=== PATIENT | male | born 1945 | race Caucasian/White ===

== ENCOUNTER 2016-11-27 08:15 | Day surgery (SDC) | payer MEDICARE, OTHER ==
[~2016-11-27] VITALS: Ht 170.2 cm; Wt 67.4 kg
[~2016-11-27 08:15] MED LIST: ASPI-611 PO; CEPH500C2 PO; CLOP75TA33 PO; DILT120C3 PO; LIDOCAINE 1% (10mg/ml) 2ml SDV INJ ONE; LR 1,000 ML IV SCH; MULT1CAP47 PO; OMEG500C7 PO; ROSU40TA20 PO; UBID30CA11 PO; VIT-10 PO
--- OUTSIDE RECORDS SUMMARY | 2016-11-27 08:20 | XMS REPORT | Referral Summary ---
Author Author [facility], Family Medicine Organization [facility] Address Unknown Phone Unavailable Care Team Providers Care Sap Ppm Consultant Name Role Phone Emanuel Block Primary Care Physician [phone] Encounter VC Date(s): 05/11/15 - 05/11/15 [facility] Newton, [address] [place] [address]- Discharge Diagnosis: Visit for wound care Discharge Disposition: 01-Home or Self Care Attending Physician: Emanuel Block DO Admitting Physician: Emanuel Block DO Vital Signs Most recent to 1 oldest [Reference Range]: Temperature Tympanic 35.8 degC [36.6-38.1 degC] *LOW* (05/11/15 9:53 AM) Peripheral Pulse 70 bpm Rate [60-100 bpm] (05/11/15 9:53 AM) Blood Pressure 140/75 mmHg [90-140/60-90 mmHg] (05/11/15 9:53 AM) Problem List Condition Effective Dates Status Health Status Informant Abdominal aortic Active aneurysm(Confirmed) Hay Active fever(Confirmed)1 Peripheral Active neuropathy(Confirmed ) Dyslipidemia, goal Active LDL below 70(Confirmed) HTN Active (hypertension)(Confi rmed) Prostate 1999 Active cancer(Confirmed) Leg pain, 02/15/09 Active bilateral(Confirmed) PVD (peripheral Active vascular disease)(Confirmed) Chicken Active pox(Confirmed) 1Mainly childhood Allergies, Adverse Reactions, Alerts No Known Medication Allergies Medications Aspir 81 oral delayed release tablet 1 tabs, Oral, Daily Start Date: 03/20/14 Status: Ordered Cardizem CD 120 mg/24 hours oral capsule, extended release 1 caps, Oral, Daily, # 90 caps, 3 Refill(s), Pharmacy: [id number], 1 caps Oral Daily Start Date: 10/03/14 Status: Ordered Crestor 20 mg oral tablet 0.5 tabs, Oral, Daily Start Date: 03/20/14 Status: Ordered Fish Oil Oral, 0 Refill(s) Start Date: 06/29/14 Status: Ordered Multivitamins oral tablet 1 tabs, Oral, Daily Start Date: 03/20/14 Status: Ordered Plavix 75 mg oral tablet 1 tabs, Oral, Daily Start Date: 03/20/14 Status: Ordered Viagra 100 mg oral tablet 1 tabs, Oral, Daily, as needed for erectile dysfunction, 1 hour before sexual activity Start Date: 03/20/14 Status: Ordered Results No data available for this section Immunizations No data available for this section Procedures Procedure Date Related Diagnosis Body Site PFT 09/12/11 Colonoscopy 06/24/10 Open repair AAA; AFB 08/29/09 Transrectal needle prostate bx 05/09/99 Colonoscopy 1998 Hernia1 1992 Tonsillectomy 1see conversion document Social History Social History Type Response Smoking Status Former smoker; Type: Cigarettes1 1Quit in 2011 Assessment and Plan Extracted from: Title: Office Visit Note Author: Emanuel Block DO Date: 05/11/15 Assessment/Plan Encounter for other specified aftercare, Visit for wound care Ear has healed well. No signs of infection. Schedule well male exam at his convenience. Ordered: Office Visit No Charge Future Scheduled TestsReferral* Return to Clinic 10/03/14 11:16 AM Referrals to Other Providers Referred by: Zully Joy
--- OUTSIDE RECORDS SUMMARY | 2016-11-27 08:20 | XMS REPORT | Referral Summary ---
Author Author [facility], Urology Organization [facility] Address Unknown Phone Unavailable Care Team Providers Care Car Sales Representative Name Role Phone Emanuel Block Primary Care Physician [phone] Encounter VC Date(s): 06/15/15 - 06/15/15 [facility], Urology [address] [place] [address] [place] [address] Discharge Diagnosis: Hypertension Discharge Diagnosis: Personal history of prostate cancer Discharge Diagnosis: Personal history of prostate cancer Discharge Diagnosis: Erectile dysfunction Discharge Disposition: -Home or Self Care Attending Physician: Damián Jackson JR, MD Admitting Physician: Damián Jackson JR, MD Referring Physician: Emanuel Block DO Vital Signs Most recent to 1 oldest [Reference Range]: Peripheral Pulse 67 bpm Rate [60-100 bpm] (06/15/15 2:38 PM) Blood Pressure 132/76 mmHg [90-140/60-90 mmHg] (06/15/15 2:38 PM) Problem List Condition Effective Dates Status Health [...] Daily, # 90 caps, 3 Refill(s), Pharmacy: [id number], 1 caps Oral Daily Start Date: 10/03/14 Status: Ordered Crestor 20 mg oral tablet 20 mg 1 tabs, Oral, Daily, fax to [place] pharmacy [phone], # 90 tabs, 2 Refill (s) Start Date: 06/13/15 Status: Ordered Fish Oil Oral, 0 Refill(s) [...] 2011 Assessment and Plan Extracted from: Title: Ambulatory Patient Education Author: Damián Jackson JR, MD Date : 06/15/15 Follow Up With: Where: When: [address]; [place] [address] Number 100 (1) Within 3 to 5 days Comments: Follow Up With: Where: When: [address]; [place] [address] Number 100 (1) In 6 months 12/14/2015 Comments: Extracted from: Title: Office Visit Note Author: Damián Jackson JR, MD Date: 06/15/15 Assessment/Plan 1.Personal history of prostate cancer, Personal history of prostate cancer recheck my office in 6 months PSA a week before visit Ordered: Office Visit Level 3 Est 13036 2.Erectile dysfunction continue Viagra 3.Hypertension continue Cardizem Future Scheduled TestsReferral* Return to Clinic 10/03/14 11:16 AM Referrals to Other Providers Referred by: Zully Joy
--- OUTSIDE RECORDS SUMMARY | 2016-11-27 08:20 | XMS REPORT | Referral Summary ---
Author Author [facility], Family Medicine Organization [facility] Address Unknown Phone Unavailable Care Team Providers Care Electrical Electronics Engineers Name Role Phone Emanuel Block Primary Care Physician [phone] Encounter VC Date(s): 04/16/15 - 04/16/15 [facility] Newton, [address] [place] [address] Discharge Diagnosis: Cellulitis of right ear Discharge Diagnosis: Basal cell carcinoma, ear Discharge Disposition: 01-Home or Self Care Attending Physician: Emanuel Block DO Admitting Physician: Emanuel Block DO Vital Signs Most recent to 1 oldest [Reference Range]: Temperature Tympanic 35.2 degC [36.6-38.1 degC] *LOW* (04/16/15 10:11 AM) Peripheral Pulse 88 bpm Rate [60-100 bpm] (04/16/15 10:11 AM) Blood Pressure 134/88 mmHg [90-140/60-90 mmHg] (04/16/15 10:11 AM) Problem List Condition Effective Dates Status [...] Daily, # 90 caps, 3 Refill(s), Pharmacy: [id number], 1 caps Oral Daily Start Date: 10/03/14 Status: Ordered Crestor 20 mg oral tablet 20 mg 1 tabs, Oral, Daily, fax to [place] pharmacy [phone], # 90 tabs, 2 Refill (s) Start Date: 06/13/15 Status: Ordered Fish Oil Oral, 0 Refill(s) Start Date: 06/29/14 Status: Ordered Lipitor 40 mg oral tablet 40 mg 1 tabs, Oral, Daily, fax to [place] [phone] ext [phone], # 90 tabs, 1 Refill(s) Start Date: 06/27/15 Status: Ordered Multivitamins oral tablet 1 tabs, [...] 08/29/09 Transrectal needle prostate bx 05/09/99 Colonoscopy 1999 Hernia1 1992 Tonsillectomy 1see conversion document Social History Social History Type Response Smoking Status Former smoker; Type: Cigarettes1 1Quit in 2011 Assessment and Plan Extracted from: Title: Office Visit Note Author: Emanuel Block DO Date: 04/16/15 Assessment/Plan Basal cell carcinoma, ear We plan on excising this lesion once the infection is under good control. At this time with the ear still appearing slightly red with some edema I recommend continued antibiotic therapy for an additional week before considering excision. Patient is agreeable. Ordered: Office Visit Level 3 Est 06876 Cellulitis of right ear Continue with Bactrim one tablet twice a day for an additional week. Follow-up in a week time for reevaluation. Ordered: Office Visit Level 3 Est 87287
--- OUTSIDE RECORDS SUMMARY | 2016-11-27 08:20 | XMS REPORT | Referral Summary ---
Author Author [facility], Family Medicine Organization Via [facility] Address Unknown Phone Unavailable Care Team Providers Care Intelligence Manager Name Role Phone Emanuel Block Primary Care Physician [phone] Encounter VC Date(s): 02/14/16 - 02/14/16 [facility], [address] [place] [address] Discharge Disposition: 01-Home or Self Care Attending Physician: Gage Long APRN Admitting Physician: Gage Long APRN Vital Signs Most recent to 1 oldest [Reference Range]: Peripheral Pulse 72 bpm Rate [60-100 bpm] (02/14/16 10:29 AM) Respiratory Rate 18 br/min [14-20 br/min] (02/14/16 10:29 AM) Blood Pressure 122/72 mmHg [90-140/60-90 mmHg] (02/14/16 10:29 AM) SpO2 96 % (02/14/16 10:29 AM) Problem List Condition Effective Dates Status Health Status Informant Abdominal aortic Active aneurysm(Confirmed) Hay Active fever(Confirmed)1 Peripheral Active neuropathy(Confirmed ) Dyslipidemia, goal Active LDL below 70(Confirmed) HTN Active (hypertension)(Confi rmed) Prostate 1998 Active cancer(Confirmed) Leg pain, 02/15/09 Active bilateral(Confirmed) PVD (peripheral Active vascular disease)(Confirmed) Chicken Active pox(Confirmed) 1Mainly childhood Allergies, Adverse Reactions, Alerts No Known Medication Allergies Medications Aspir 81 oral delayed release tablet 1 tabs, Oral, Daily Start Date: 03/20/14 Status: Ordered Cardizem CD 120 mg/24 hours oral capsule, extended release 120 mg 1 caps, Oral, Daily, # 90 caps, 3 Refill(s), [facility], 1 caps Oral Daily Start Date: 11/23/15 Status: Ordered cephalexin 500 mg oral tablet 500 mg 1 tabs, Oral, TID, X 10 days, # 30 tabs, 0 Refill(s), Pharmacy: [facility], 1 tabs Oral TID,x10 days Start Date: 02/14/16 Stop Date: 02/24/16 Status: Ordered Crestor 40 mg oral tablet 40 mg 1 tabs, Oral, Daily, # 90 tabs, 2 Refill(s), Pharmacy: [facility], 1 tabs Oral Daily Start Date: 11/26/15 Status: Ordered Fish Oil Oral, 0 Refill(s) [...] Cigarettes1 1Quit in 2011 Assessment and Plan No data available for this section
--- OUTSIDE RECORDS SUMMARY | 2016-11-27 08:21 | XMS REPORT | Referral Summary ---
Author Author [facility], Family Medicine Organization [facility], [facility] Address Unknown Phone Unavailable Care Team Providers Care Cook Apprentice Name Role Phone Emanuel Block Primary Care Physician [phone] Encounter VC Date(s): 09/13/15 - 09/13/15 [facility], [address] [place] [address] Discharge Diagnosis: Non-healing skin lesion Discharge Disposition: 01-Home or Self Care Attending Physician: Emanuel Block DO Admitting Physician: Emanuel Block DO Vital Signs Most recent to 1 oldest [Reference Range]: Temperature Tympanic 36.4 degC [36.6-38.1 degC] *LOW* (09/13/15 3:10 PM) Peripheral Pulse 66 bpm Rate [60-100 bpm] (09/13/15 3:10 PM) Blood Pressure 119/65 mmHg [90-140/60-90 mmHg] (09/13/15 3:10 PM) Problem List Condition Effective Dates Status [...] Daily, # 90 caps, 3 Refill(s), Pharmacy: [facility], 1 caps Oral Daily Start Date: 10/03/14 Status: Ordered Crestor 20 mg oral tablet 20 mg 1 tabs, Oral, Daily, fax to [place] pharmacy [phone], # 90 tabs, 2 Refill (s) Start Date: 06/13/15 Status: Ordered Fish Oil Oral, 0 Refill(s) Start Date: 06/29/14 Status: Ordered Lipitor 40 mg oral tablet 40 mg 1 tabs, Oral, Daily, fax to [place] [phone] ext [phone], # 90 tabs, 1 Refill(s) Start Date: [...] Procedures Procedure Date Related Diagnosis Body Site Shaving of epidermal or dermal lesion, single 09/13/15 lesion, face, ears, eyelids, nose, lips, mucous membrane; lesion diameter 0.6 to 1.0 cm PFT 09/12/11 Colonoscopy 06/24/10 Open repair AAA; AFB 08/29/09 Transrectal needle prostate bx 05/09/99 Colonoscopy 1998 Hernia1 1992 Tonsillectomy 1see conversion document Social History Social History Type Response Smoking Status Former smoker; Type: Cigarettes1 1Quit in 2011 Assessment and Plan Extracted from: Title: Nonhealing skin lesion of Author: Emanuel Block DO Date: 09/13/15 nose Assessment/Plan Non-healing skin lesion, Other specified malignant neoplasm of skin of nose 1. Clinical finding consistent with a squamous cell carcinoma versus actinic keratosis. Given his history of skin cancer, shave biopsy recommended , patient was agreeable. 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 Description: Following verbal informed consent, patient was laid in the supine position with the head turned towards the right. The area was cleansed with Betadine. Local anesthesia was achieved with one percent lidocaine with epinephrine. Shave biopsy was done using dermal blade. Tissue was sent to pathology for review. Hemostasis was assured using heat cautery. Patient tolerated treatment well, we will call him with the report. Ordered: Office Visit Level 3 Est 92336 shvg skin lesion 1 f/e/e/n/l/m diam 0.6-1.0 cm [id number] Future Scheduled TestsReferral* Return to Clinic 10/03/14 11:16 AM Referrals to Other Providers Referred by: Zully Joy
--- OUTSIDE RECORDS SUMMARY | 2016-11-27 08:21 | XMS REPORT | Referral Summary ---
Author Author [facility], Family Medicine Organization [facility], [facility] Address Unknown Phone Unavailable Care Team Providers Care Crack Off Person Name Role Phone Emanuel Block Primary Care Physician [phone] Encounter VC Date(s): 12/21/15 - 12/21/15 [facility] Newton, [address] [place] [address] Discharge Disposition: 01-Home or Self Care Attending Physician: Emanuel Block DO Vital Signs Most recent to 1 oldest [Reference Range]: Temperature Tympanic 37 degC [36.6-38.1 degC] (12/21/15 2:52 PM) Peripheral Pulse 88 bpm Rate [60-100 bpm] (12/21/15 2:52 PM) Blood Pressure 120/70 mmHg [90-140/60-90 mmHg] (12/21/15 2:52 PM) SpO2 95 % (12/21/15 2:52 PM) Problem List Condition Effective Dates Status [...] Daily, # 90 caps, 3 Refill(s), Pharmacy: [facility], 1 caps Oral Daily Start Date: 11/23/15 Status: Ordered Crestor 40 mg oral tablet 40 mg 1 tabs, Oral, Daily, # 90 tabs, 2 Refill(s), Pharmacy: [facility], 1 tabs Oral Daily Start Date: 11/26/15 Status: Ordered doxycycline hyclate 100 mg oral tablet 100 mg 1 tabs, Oral, BID, X 14 days, # 28 tabs, 0 Refill(s), Pharmacy: [facility], 1 tabs Oral BID,x14 days Start Date: 12/21/15 Stop Date: 01/04/16 Status: Ordered Fish Oil Oral, 0 Refill(s) [...] Visit Note Author: Emanuel Block DO Date: 12/21/15 Assessment/Plan Infected tick bite 1. Doxycycline 100 mg twice a day for 14 days. 2. Recommended stopping the use of hydrogen peroxide and alcohol. He may apply topical Benadryl or hydrocortisone cream for itching and discomfort. 3. Follow-up if worsening presentation. Ordered: doxycycline, 100 mg 1 tabs, Oral, BID, X 14 days, # 28 tabs, 0 Refill(s), Pharmacy: [facility], 1 tabs Oral BID,x14 days Office Visit Level 3 Est 81015
--- OUTSIDE RECORDS SUMMARY | 2016-11-27 08:21 | XMS REPORT | Referral Summary ---
Author Author [facility], Family Medicine Organization [facility] Address Unknown Phone Unavailable Care Team Providers Care Enrollment Clerk Name Role Phone Emanuel Block Primary Care Physician [phone] Encounter Date(s): 03/23/15 - 03/23/15 [facility], Family [address] [place] [address] Discharge Diagnosis: Ear lesion Discharge Disposition: 01-Home or Self Care Attending Physician: Kaykay Jackson APRN Admitting Physician: Kaykay Jackson APRN Vital Signs Most recent to 1 oldest [Reference Range]: Peripheral Pulse 80 bpm Rate [60-100 bpm] (03/23/15 10:14 AM) Blood Pressure 132/72 mmHg [90-140/60-90 mmHg] (03/23/15 10:14 AM) Problem List Condition Effective Dates Status [...] Daily, # 90 caps, 3 Refill(s), Pharmacy: [facility], 1 caps Oral Daily Start Date: 10/03/14 Status: Ordered Crestor 20 mg oral tablet 20 mg 1 tabs, Oral, Daily, fax to [place] pharmacy [phone], # 90 tabs, 2 Refill (s) Start Date: 06/13/15 Status: Ordered Fish Oil Oral, 0 Refill(s) Start Date: 06/29/14 Status: Ordered Lipitor 40 mg oral tablet 40 mg 1 tabs, Oral, Daily, fax to [place] [phone] ext [phone], # 90 tabs, 1 Refill(s) Start Date: 06/27/15 Status: Ordered Multivitamins oral tablet 1 tabs, Oral, Daily Start Date: 03/20/14 Status: Ordered Plavix 75 mg oral tablet 1 tabs, Oral, Daily Start Date: 03/20/14 Status: Ordered Viagra 100 mg oral tablet 1 tabs, Oral, Daily, as needed for erectile dysfunction, 1 hour before sexual activity Start Date: 03/20/14 Status: Ordered Results Microbiology Reports TEST: Ear Culture1 STATUS: Auth (Verified) BODY SITE: SOURCE: Ear COLLECTED DATE/TIME: 03/23/15 11:13 AM Ear Culture Staphylococcus aureus Moderate amount Inducible Clindamycin resistance is not present ORGANISM:Staphylococcus aureus INTERPRETIVE DATA 1Red top BactiSwab, Ambient Immunizations No data available for this section Procedures Procedure Date Related Diagnosis Body Site PFT 09/12/11 Colonoscopy 06/24/10 Open repair AAA; AFB 08/29/09 Transrectal needle prostate bx 05/09/99 Colonoscopy 1999 Hernia1 1992 Tonsillectomy 1see conversion document Social History Social History Type Response Smoking Status Former smoker; Type: Cigarettes1 1Quit in 2011 Assessment and Plan Future Scheduled TestsReferral* Return to Clinic 10/03/14 11:16 AM Referrals to Other Providers Referred by: Zully Joy
--- OUTSIDE RECORDS SUMMARY | 2016-11-27 08:21 | XMS REPORT | Continuity of Care Document ---
Author Author Rosana Alexander MA Ambulatory Address Unknown Phone Unavailable Care Team Providers Care Rail Express Clerk Name Role Phone Marly Castañeda GUERITA Unavailable Payers Payer name Insurance type Covered libertarian ID Authorization(s) Unknown Problems Condition Effective Dates (start - stop) Clinical Status Malignant Neoplasm, Prostate - *Controlled Erectile Dysfunction - *Chronic Peripheral vascular disease with claudication - *Uncontrolled Dyslipidemia, goal LDL below 70 - *Controlled Hypertension - Uncontrolled Erectile dysfunction - *Uncontrolled PVD (peripheral vascular disease) with claudicatio - *Stable Hypertension - *Stable Dyslipidemia, goal LDL below 70 - *Stable Allergic rhinitis - *Acute Dizziness - *Acute Middle ear effusion - *Acute Skin lesion of scalp - *Chronic Benign paroxysmal positional vertigo - *Chronic Simple chronic bronchitis - *Chronic Personal history of malignant neoplasm of prostate - *Controlled Lesion of skin of face - *Acute Dizziness - *Acute Depression - *Chronic PAD (peripheral artery disease) - *Chronic Hypertension, Unspecified - *Chronic Hypercholesterolemia - *Chronic Peripheral vascular disease, unspecified - *Chronic Erectile Dysfunction - *Chronic Tobacco Abuse - *Chronic Bronchitis, Acute - *Acute Skin lesion - *Acute Hypertension - *Fair Control Atherosclerotic PVD with intermittent claudication - *Stable Dyslipidemia, goal LDL below 70 - *Stable ED (erectile dysfunction) - *Chronic Hypercholesterolemia - Chronic Hypertension, Unspecified - *Chronic Routine Medical Exam - *Stable Malignant Neoplasm, Prostate - *Chronic Hypertension, Unspecified - *Chronic Erectile Dysfunction - *Chronic PURE HYPERCHOLESTEROLEM - Family History Family Member Diagnosis Age At Onset Status Unknown Social History Social History Element Description Quantity Unknown Allergies, Adverse Reactions, Alerts Substance Reaction Severity Status Unknown Medications Medication Instructions Dosage Effective Dates (start - stop) Status Viagra 100 mg tablet take 1 tablet (100MG) by oral route every day as needed approximately 1 hour before sexual activity 100 MG - Active PreserVision AREDS 7,160 unit-113 mg-100 unit tablet take 1 Tablet by Oral route every day 0 - Active multivitamin tablet take 1 Tablet by Oral route every day 0 - Active Fish Oil 1,000 mg capsule take 1 Capsule by Oral route every day 0 2011 - Active Aspir-81 81 mg tablet,delayed release take 1 tablet (81MG) by oral route every day 81 MG - Active Crestor 20 mg tablet take 1/2 Tablet (10MG) by oral route every day 10 MG - Active Plavix 75 mg tablet take 1 tablet (75MG) by oral route every day 75 MG Mar - Active niacin ER 750 mg tablet,extended release take 1 Tablet (750MG) by oral route every day 750 MG - Active Cardizem CD 120 mg capsule,extended release take 1 capsule (120MG) by oral route every day 120 MG - Active Immunizations Vaccine Date Status Comments Unknown Results Test Name Date and Time Measure Units Reference Range Abnormal Flag Comments Panel Description: Prostatic Specific Antigen-AMS PSA 14:35:00 0.7 ng/mL 0.0-4.5 AUA PSA Best Practice Guidelines: Age-Adjusted PSA Values by Ethnic GroupAge Range Asians - Caucasians [id number] 0-2.0 0-2.0 0-2.550-59 0-3.0 0-4.0 0-3.560-69 0-4.0 0-4.5 0-4.570-79 0-5.0 0-5.5 0-6.5Testing performed at [facility] [address] [facility] [address] Meat Stuffer Arya Lorenz MD Panel Description: Prostatic Specific Antigen-[facility] PSA 14:35:00 0.7 ng/mL 0.0-4.5 AUA PSA Best Practice Guidelines: Age-Adjusted PSA Values by Ethnic GroupAge Range Asians - Caucasians [id number] 0-2.0 0-2.0 0-2.550-59 0-3.0 0-4.0 0-3.560-69 0-4.0 0-4.5 0-4.570-79 0-5.0 0-5.5 0-6.5Testing performed at [facility] [address] [place] [id number] Meat Stuffer Arya Lorenz MD Vital Signs Date / Time: Height Weight Pulse Rate Blood Pressure Temperature /14:39:00 65.50 in 139.00 lbs 76 /min 124/70 mm[Hg] Procedures Procedure Date Unknown Encounters Encounter Location Date Patient Visit [facility] Patient Visit [facility] Mur Card Patient Visit [facility] Patient Visit [facility] Patient Visit [facility] Patient Visit [facility] Patient Visit [facility] Patient Visit [facility] W21 ENT Patient Visit [facility] Patient Visit [facility] Patient Visit [facility] Patient Visit [facility] Patient Visit [facility] Mur Card Patient Visit [facility] Patient Visit [facility] Patient Visit Conversion Advance Directives Directive Effective Date Unknown
--- OUTSIDE RECORDS SUMMARY | 2016-11-27 08:21 | XMS REPORT | Referral Summary ---
Author Author [facility], Family Medicine Organization [facility] Address Unknown Phone Unavailable Care Team Providers Care Hearing Examiner Name Role Phone Emanuel Block Primary Care Physician [phone] Encounter VC Date(s): 04/25/15 - 04/25/15 [facility], [address] [place] [address]- Discharge Diagnosis: Encounter for postoperative care Discharge Disposition: 01-Home or Self Care Attending Physician: Emanuel Block DO Admitting Physician: Emanuel Block DO Vital Signs Most recent to 1 oldest [Reference Range]: Temperature Tympanic 35.8 degC [36.6-38.1 degC] *LOW* (04/25/15 10:21 AM) Peripheral Pulse 68 bpm Rate [60-100 bpm] (04/25/15 10:21 AM) Blood Pressure 124/70 mmHg [90-140/60-90 mmHg] (04/25/15 10:21 AM) Problem List Condition Effective Dates Status [...] Oral, Daily Start Date: 03/20/14 Status: Ordered Bactrim DS 800 mg-160 mg oral tablet 1 tabs, Oral, BID, X 10 days, # 20 tabs, 0 Refill(s), Pharmacy: [id number] Start Date: 04/23/15 Stop Date: 05/03/15 Status: Ordered Cardizem CD 120 mg/24 hours oral capsule, extended release 1 caps, Oral, Daily, # 90 caps, 3 Refill(s), Pharmacy: [facility], 1 caps Oral Daily Start Date: 10/03/14 Status: Ordered Crestor 20 mg oral tablet 0.5 tabs, Oral, Daily Start Date: 03/20/14 Status: Ordered Fish Oil Oral, 0 Refill(s) Start Date: 06/29/14 Status: Ordered Multivitamins oral tablet 1 tabs, Oral, Daily Start Date: 03/20/14 Status: Ordered [place] 5 mg-325 mg oral tablet 1 tabs, Oral, q4hr, as needed for pain, # 30 tabs, 0 Refill(s) Start Date: 04/23/15 Stop Date: 05/23/15 Status: Ordered Plavix 75 mg oral tablet [...] Visit Note Author: Emanuel Block DO Date: 04/25/15 Assessment/Plan Encounter for postoperative care 1. Wound is healing appropriately. 2. Dressing was removed, Band-Aid was applied and wound care instructions provided. 3. Continue with Bactrim double strength one tablet twice a day. 4. Continue with [place] as needed for pain. 5. Follow-up in 10 days for suture removal. Ordered: Office Visit No Charge Future Scheduled TestsReferral* Return to Clinic 10/03/14 11:16 AM Referrals to Other Providers Referred by: Zully Joy
--- OUTSIDE RECORDS SUMMARY | 2016-11-27 08:21 | XMS REPORT | Referral Summary ---
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 Discharge Disposition: 01-Home or Self Care Attending Physician: Emanuel Block DO Admitting Physician: Emanuel Block DO Vital Signs Most recent to 1 oldest [Reference Range]: Temperature Tympanic 35.5 degC [36.6-38.1 degC] *LOW* (04/23/15 10:12 AM) Peripheral Pulse 72 bpm Rate [60-100 bpm] (04/23/15 10:12 AM) Blood Pressure 122/70 mmHg [90-140/60-90 mmHg] (04/23/15 10:12 AM) Problem List Condition Effective Dates Status [...] Daily, # 90 caps, 3 Refill(s), Pharmacy: [id number], 1 caps Oral Daily Start Date: 10/03/14 Status: Ordered Crestor 20 mg oral tablet 20 mg 1 tabs, Oral, Daily, fax to [place] pharmacy [phone], # 90 tabs, 2 Refill (s) Start Date: 06/13/15 Status: Ordered Fish Oil Oral, 0 Refill(s) Start Date: 06/29/14 Status: Ordered Lipitor 40 mg oral tablet 40 mg 1 tabs, Oral, Daily, fax to [place] [phone], # 90 tabs, 1 Refill(s) Start Date: [...] Procedures Procedure Date Related Diagnosis Body Site Repair, complex, eyelids, nose, ears and/or 04/23/15 lips; 2.6 cm to 7.5 cm.. PFT 09/12/11 Colonoscopy 06/24/10 Open repair AAA; AFB 08/29/09 Transrectal needle prostate bx 05/09/99 Colonoscopy 1998 Hernia1 1992 Tonsillectomy 1see conversion document Social History Social History Type Response Smoking Status Former smoker; Type: Cigarettes1 1Quit in 2011 Assessment and Plan Extracted from: Title: Excision of basal cell Author: Emanuel Block DO Date: 04/23/15 carcinoma of right ear Assessment/Plan Basal cell carcinoma of ear 1. Since the cellulitis has resolved, I recommended excision of the basal cell on the right ear today. Patient was agreeable. 2. Procedure: Excision of basal cell carcinoma with complex closure by creating askin flap and a total of 7 cm surgical margin repair. Preoperative diagnosis: basal cell carcinoma of right ear Postoperative diagnoses: same as above Indication: Skin malignancy with positive margins Location: Rim of right ear Medications: One percent lidocaine without epinephrine, 10 mL Lab: Tissue sample of 1 cm x 1 cm was sent to pathology for evaluation Description: Following written and verbal informed consent, patient was laid in the left lateral recumbent position. The ear was cleansed with alcohol followed by Betadine. This was followed by complete ear block involving the greater auricular nerve, lesser occipital nerve, auricular branch of the vagus nerve and auriculotemporal nerve. Once local anesthesia was achieved, margins were outlined for excision. The primary lesion was 8 mm x 8 mm in diameter. Excisional diameter was outlined at 1 cm x 1 cm. Additional skin demarcation was done along the the superior and inferior length of the ear rim to create a skin flap. Using a 15 blade scalpel, excision was made along the demarcated margins. Extensive undermining was done on both sides t o create a skin flap. The region of malignancy was excised and tagged at 12:00 position. Tissue was sent to pathology for evaluation. The skin margins were approximated using 6-0 Prolene. The entire length of the repair was 3 cm on both sides along the rim of the ear and 1 cm across the site of excision of malignancy to equal a total of 7 cm surgical wound repair . Good approximation and hemostasis was assured and dry compression dressing was applied. Wound care instructions provided. 4. Patient is to follow-up in 2 days for dressing removal. 5. Restart Bactrim one tablet twice a day for 10 days. 6. [place]. [place], 1-2 tablets every 6 hours as needed for pain. Ordered: Office Visit Level 3 Est 73086 Repair complex eyelid/nose/ear/lip 2.6-7.5 cm 62133 Cellulitis of right ear 1. Cellulitis of the ears is completely resolved. 2. 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 Ordered: Office Visit Level 3 Est 60310 Orders: HYDROcodone-acetaminophen, 1 tabs, Oral, q4hr, as needed for pain, # 30 tabs, 0 Refill(s) sulfamethoxazole-trimethoprim, 1 tabs, Oral, BID, X 10 days, # 20 tabs, 0 Refill(s), Pharmacy: [id number]
--- OUTSIDE RECORDS SUMMARY | 2016-11-27 08:21 | XMS REPORT | Referral Summary ---
Author Author [facility], Urology Organization [facility] Address Unknown Phone Unavailable Care Team Providers Care Wine Pasteurizer Name Role Phone Emanuel Block Primary Care Physician [phone] Encounter VC Date(s): 12/12/14 - 12/12/14 [facility], Urology [address] [place] [address] [place] [address] Discharge Diagnosis: History of malignant neoplasm of prostate Discharge Disposition: 01-Home or Self Care Attending Physician: Damián Jackson JR, MD Admitting Physician: Damián Jackson JR, MD Referring Physician: Damián Jackson JR, MD Vital Signs Most recent to 1 oldest [Reference Range]: Peripheral Pulse 66 bpm Rate [60-100 bpm] (12/12/14 10:09 AM) Blood Pressure 124/80 mmHg [90-140/60-90 mmHg] (12/12/14 10:09 AM) SpO2 92 % (12/12/14 10:09 AM) Problem List Condition Effective Dates Status [...] Daily, # 90 caps, 3 Refill(s), Pharmacy: [id number], 1 caps Oral Daily Start Date: 10/03/14 [...] Author: Damián Jackson JR, MD Date : 12/12/14 Follow Up With: Where: When: Marly Castañeda [address] [place] [address] Drive; [place] [address] Business (1) Within 3 to 5 days Comments: Follow Up With: Where: When: Damián Stein[address]; [place] [address] Business (1) In 6 months 06/14/2015 Comments: Extracted from: Title: Office Visit Note Author: Damián Jackson JR, MD Date: 12/12/14 Assessment/Plan History of malignant neoplasm of prostate Will repeat PSA in 6 months a week before next visit, with proper instructions given to patient. If his PSA is continued to rise he is going to be needing Eligard depot injection or the optopn to be seen by a medical oncologist Dr. Monroy. 15 minute face to face visit with 2/3 of the visit devoted to counseling. Ordered: Office Visit Level 3 Est 59731 Prostate Specific Antigen Future Scheduled TestsReferral* Return to Clinic 10/03/14 11:16 AM Referrals to Other Providers Referred by: Zully Joy
--- OUTSIDE RECORDS SUMMARY | 2016-11-27 08:21 | XMS REPORT | Referral Summary ---
Author Author [facility], Family Medicine Organization [facility], [facility] Address Unknown Phone Unavailable Care Team Providers Care Instrument Mechanic Weapons System Name Role Phone Emanuel Block Primary Care Physician [phone] Encounter VC Date(s): 04/09/15 - 04/09/15 [facility], [address] [place] [address] Discharge Diagnosis: Cellulitis of helix of right ear Discharge Disposition: 01-Home or Self Care Attending Physician: Emanuel Block DO Admitting Physician: Emanuel Block DO Vital Signs Most recent to 1 oldest [Reference Range]: Peripheral Pulse 82 bpm Rate [60-100 bpm] (04/09/15 11:07 AM) Blood Pressure 140/85 mmHg [90-140/60-90 mmHg] (04/09/15 11:07 AM) SpO2 98 % (04/09/15 11:07 AM) Problem List Condition Effective Dates Status [...] Daily, # 90 caps, 3 Refill(s), Pharmacy: [id number], 1 caps Oral Daily Start Date: 10/03/14 Status: Ordered Crestor 20 mg oral tablet 20 mg 1 tabs, Oral, Daily, fax to [place] pharmacy [phone], # 90 tabs, 2 Refill (s) Start Date: 06/13/15 Status: Ordered Fish Oil Oral, 0 Refill(s) Start Date: 06/29/14 Status: Ordered Lipitor 40 mg oral tablet 40 mg 1 tabs, Oral, Daily, fax to [place] [phone], # 90 tabs, 1 Refill(s) Start Date: [...] Visit Note Author: Emanuel Block DO Date: 04/09/15 Assessment/Plan Cellulitis of helix of right ear Pathophysiology of this presentation, discussed in detail with the patient. All questions were answered. 1. Rationale for holding off on the excision of the basal cell was discussed in detail with the patient. 2. His culture from a week ago was reviewed, it demonstrated staph with clindamycin resistance. We will treat him with Bactrim bid for 2 weeks and have him follow-up in a week for reevaluationfor the surgery. 3. If there's no signs for infection in a week time then we plan on doing excision of the basal cell with skin flap for closure. Patient voiced understanding. 4. Follow-up if worsening presentation, or no improvement in the next couple of days. Ordered: Office Visit Level 3 Est [id number] Orders: cephalexin, 500 mg 1 caps, Oral, QID, X 10 days, # 40 caps, 0 Refill(s ), Pharmacy: [facility], 1 caps Oral QID,x10 days sulfamethoxazole-trimethoprim, 1 tabs, Oral, BID, X 14 days, # 28 tabs, 0 Refill(s), Pharmacy: [id number]
--- OUTSIDE RECORDS SUMMARY | 2016-11-27 08:21 | XMS REPORT | Referral Summary ---
Author Author [facility], Urology Organization [facility] Address Unknown Phone Unavailable Care Team Providers Care Employment Appeals Examiner Name Role Phone Emanuel Block Primary Care Physician [phone] Encounter VC Date(s): 12/21/15 - 12/21/15 [facility], Urology [address] [place] [address] [place] [address] Discharge Disposition: 01-Home or Self Care Attending Physician: Damián Jackson JR, MD Admitting Physician: Damián Jackson JR, MD Referring Physician: Emanuel Block DO Vital Signs Most recent to 1 oldest [Reference Range]: Temperature Tympanic 37.0 degC [36.6-38.1 degC] (12/21/15 3:17 PM) Apical Heart Rate 84 bpm [60-100 bpm] (12/21/15 3:17 PM) Blood Pressure 130/80 mmHg [90-140/60-90 mmHg] (12/21/15 3:17 PM) Problem List Condition Effective Dates Status [...] Daily, # 90 caps, 3 Refill(s), Pharmacy: [email or web address], 1 caps Oral Daily Start Date: 11/23/15 Status: Ordered Crestor 40 mg oral tablet 40 mg 1 tabs, Oral, Daily, # 90 tabs, 2 Refill(s), Pharmacy: [facility], 1 tabs Oral Daily Start Date: 11/26/15 Status: Ordered doxycycline hyclate 100 mg oral tablet 100 mg 1 tabs, Oral, BID, X 14 days, # 28 tabs, 0 Refill(s), Pharmacy: [email or web address], 1 tabs Oral BID,x14 days [...]
--- OUTSIDE RECORDS SUMMARY | 2016-11-27 08:21 | XMS REPORT | Referral Summary ---
Author Organization Unknown Address Unknown Phone Unavailable Care Team Providers Care Carpet Floor Layer Apprentice Name Role Phone Tg Castañeda Primary Care Physician [phone] Encounter VC Date(s): 10/03/14 - 10/03/14 [facility], [place] Card[facility] [address] [place] [address] [place] [address] Discharge Diagnosis: Dyslipidemia, goal LDL below 70 Discharge Diagnosis: PVD (peripheral vascular disease) Discharge Diagnosis: Abdominal aortic aneurysm Discharge Diagnosis: HTN (hypertension) Discharge Diagnosis: Peripheral neuropathy Discharge Disposition: Home or Self Care Attending Physician: Zully Joy Admitting Physician: Zully Joy Referring Physician: Marly Castañeda MD Vital Signs Most recent to 1 oldest [Reference Range]: Peripheral Pulse 72 bpm Rate [60-100 bpm] (10/03/14 10:47 AM) Blood Pressure 122/72 mmHg [90-140/60-90 mmHg] (10/03/14 10:47 AM) Problem List Condition Effective Dates Status [...] Daily, # 90 caps, 3 Refill(s), Pharmacy: [facility], 1 caps Oral Daily Start Date: 10/03/14 Status: Ordered Crestor 20 mg oral tablet 0.5 tabs, Oral, Daily Start Date: 03/20/14 Status: Ordered Fish Oil Oral, 0 Refill(s) Start Date: 06/29/14 Status: Ordered Multivitamins oral tablet 1 tabs, Oral, Daily Start Date: 03/20/14 Status: Ordered Plavix 75 mg oral tablet 1 tabs, Oral, Daily Start Date: 03/20/14 Status: Ordered PreserVision See Instructions, PreserVision 7,160 unit-113 mg-100 unit tablet Take 1 tablet by oral route every day Special Instructions: PreserVision 7,160 unit-113 mg-100 unit tablet Take 1 tablet by oral route every day Start Date: 03/20/14 Status: Ordered Viagra 100 mg oral tablet 1 tabs, Oral, Daily, as needed for erectile dysfunction, 1 hour before sexual activity Special Instructions: 1 hour before sexual activity Start Date: [...] Extracted from: Title: Office Visit Note Author: Zully Joy Date: 10/03/14 Assessment/Plan 1.HTN (hypertension) Currently well controlled; continue diltiazem and encouraged low salt diet 2.Abdominal aortic aneurysm Status post open repair by Dr. 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 Follow-up Dr. Coyle 6 months Orders: diltiazem, 1 caps, Oral, Daily, # 90 caps, 3 Refill(s), Pharmacy: [facility], 1 caps Oral Daily Return to Clinic Future Scheduled TestsReferral* Return to Clinic 3/10/15 11:16 AM Referrals to Other Providers Referred by: Zully Joy
--- OUTSIDE RECORDS SUMMARY | 2016-11-27 08:21 | XMS REPORT | Referral Summary ---
Author Author [facility], Family [facility] Organization [facility] Address Unknown Phone Unavailable Care Team Providers Care Product Craftsman Name Role Phone Emanuel Block Primary Care Physician [phone] Encounter Date(s): 02/27/15 - 02/27/15 [facility], [address] [place] [address] Discharge Diagnosis: Shoulder pain Discharge Diagnosis: Shoulder pain, left Discharge Diagnosis: Arm pain Discharge Disposition: 01-Home or Self Care Attending Physician: Marly Castañeda MD Admitting Physician: Marly Castañeda MD Vital Signs Most recent to 1 oldest [Reference Range]: Temperature Tympanic 36.7 degC [36.6-38.1 degC] (02/27/15 2:27 PM) Peripheral Pulse 64 bpm Rate [60-100 bpm] (02/27/15 2:27 PM) Respiratory Rate 17 br/min [14-20 br/min] (02/27/15 2:27 PM) Blood Pressure 130/68 mmHg [90-140/60-90 mmHg] (02/27/15 2:27 PM) Problem List Condition Effective Dates Status [...] Daily, # 90 caps, 3 Refill(s), Pharmacy: [facility], 1 caps Oral Daily Start Date: 10/03/14 Status: Ordered Crestor 20 mg oral tablet 20 mg 1 tabs, Oral, Daily, fax to [place] pharmacy [phone], # 90 tabs, 2 Refill (s) Start Date: 06/13/15 Status: Ordered Fish Oil Oral, 0 Refill(s) Start Date: 06/29/14 Status: Ordered Lipitor 40 mg oral tablet 40 mg 1 tabs, Oral, Daily, fax to [place] [phone], # 90 tabs, 1 Refill(s) Start Date: [...] Extracted from: Title: Ambulatory Patient Education Author: Marly Castañeda MD Date: 02/27/15 Family Medicine Shoulder Range of Motion Exercises The shoulder is the most flexible joint in the human body. Because of this it is also the most unstable joint in the body. All ages can develop shoulder problems. Early treatment of problems is necessary for a good outcome. People react to shoulder pain by decreasing the movement of the joint. After a brief period of time, the shoulder can become "frozen". This is an almost complete loss of the ability to move the damaged shoulder. Following injuries your caregivers can give you instructions on exercises to keep your range of motion ( ability to move your shoulder freely), or regain it if it has been lost. EXERCISES EXERCISES TO MAINTAIN THE MOBILITY OF YOUR SHOULDER: Codman's Exercise or Pendulum Exercise This exercise may be performed in a prone (face-down) lying position or standing while leaning on a chair with the opposite arm. Its purpose is to relax the muscles in your shoulder and slowly but surely increase the range of motion and to relieve pain. Lie on your stomach close to the side edge of the bed. Let your weak arm hang over the edge of the bed. Relax your shoulder, arm and hand. Let your shoulder blade relax and drop down. Slowly and gently swing your arm forward and back. Do not use your neck muscles; relax them. It might be easier to have someone else gently start swinging your arm. As pain decreases, increase your swing. To start, arm swing should begin at 15 degree angles. In time and as pain lessens, move to 30-45 degree angles. Start with swinging for about 15 seconds, and work towards swinging for 3 to 5 minutes. This exercise may also be performed in a standing/bent over position. Stand and hold onto a sturdy chair with your good arm. Bend forward at the waist and bend your knees slightly to help protect your back. Relax your weak arm, let it hang limp. Relax your shoulder blade and let it drop. Keep your shoulder relaxed and use body motion to swing your arm in small circles. Stand up tall and relax. Repeat motion and change direction of circles. Start with swinging for about 30 seconds, and work towards swinging for 3 to 5 minutes. STRETCHING EXERCISES: Lift your arm out in front of you with the elbow bent at 90 degrees. Using your other arm gently pull the elbow forward and across your body. Bend one arm behind you with the palm facing outward. Using the other arm, hold a towel or rope and reach this arm up above your head, then bend it at the elbow to move your wrist to behind your neck. Grab the free end of the towel with the hand behind your back. Gently pull the towel up with the hand behind your neck, gradually increasing the pull on the hand behind the small of your back. Then, gradually pull down with the hand behind the small of your back. This will pull the hand and arm behind your neck further. Both shoulders will have an increased range of motion with repetition of this exercise. STRENGTHENING EXERCISES: Standing with your arm at your side and straight out from your shoulder with the elbow bent at 90 degrees, hold onto a small weight and slowly raise your hand so it points straight up in the air. Repeat this five times to begin with, and gradually increase to ten times. Do this four times per day. As you grow stronger you can gradually increase the weight. Repeat the above exercise, only this time using an elastic band. Start with your hand up in the air and pull down until your hand is by your side. As you grow stronger, gradually increase the amount you pull by increasing the number or size of the elastic bands. Use the same amount of repetitions. Standing with your hand at your side and holding onto a weight, gradually lift the hand in front of you until it is over your head. Do the same also with the hand remaining at your side and lift the hand away from your body until it is again over your head. Repeat this five times to begin with, and gradually increase to ten times. Do this four times per day. As you grow stronger you can gradually increase the weight. Document Released: 04/10/2004 Document Revised: 07/18/2014 Document Reviewed: [facility] Patient Information 2015 [employer] [facility]. This information is not intended to replace advice given to you by your health care provider. Make sure you discuss any questions you have with your health care provider. No follow up information was provided. Extracted from: Title: Office Visit Note Author: Marly Castañeda MD Date: 02/27/15 Assessment/Plan Arm pain physical therapy Shoulder pain Ordered: XR Shoulder Complete Left Orders: CT Upper Extremity w/o Contrast Left Future Scheduled TestsReferral* Return to Clinic 10/03/14 11:16 AM Referrals to Other Providers Referred by: Zully Joy
--- OUTSIDE RECORDS SUMMARY | 2016-11-27 08:21 | XMS REPORT | Referral Summary ---
Author Author [facility], Family Medicine Organization [facility] Address Unknown Phone Unavailable Care Team Providers Care Delta System Freight Car Cleaner Name Role Phone Emanuel Block Primary Care Physician [phone] Encounter VC Date(s): 05/04/15 - 05/04/15 [facility], [address] [place] [address] Discharge Diagnosis: Visit for suture removal Discharge Diagnosis: Encounter for wound care Discharge Diagnosis: Suture reaction Discharge Disposition: 01-Home or Self Care Attending Physician: Emanuel Block DO Admitting Physician: Emanuel Block DO Vital Signs Most recent to 1 oldest [Reference Range]: Temperature Tympanic 35.7 degC [36.6-38.1 degC] *LOW* (05/04/15 10:35 AM) Peripheral Pulse 68 bpm Rate [60-100 bpm] (05/04/15 10:35 AM) Blood Pressure 130/72 mmHg [90-140/60-90 mmHg] (05/04/15 10:35 AM) Problem List Condition Effective Dates Status [...] 1 caps, Oral, Daily, # 90 caps, 0 Refill(s), Pharmacy: [id number], 1 caps Oral Daily Start Date: 11/13/15 Status: Ordered Crestor 20 mg oral tablet 20 mg 1 tabs, Oral, Daily, fax to [place] pharmacy [phone], # 90 tabs, 2 Refill (s) Start Date: 06/13/15 Status: Ordered Fish Oil Oral, 0 Refill(s) Start Date: 06/29/14 Status: Ordered Lipitor 40 mg oral tablet 40 mg 1 tabs, Oral, Daily, fax to [place] [phone], # 90 tabs, 1 Refill(s) Start Date: [...] Visit Note Author: Emanuel Block DO Date: 05/04/15 Assessment/Plan Encounter for removal of sutures, Visit for suture removal Suture s removed without difficulty. Ordered: Office Visit No Charge Encounter for wound care Wound care instructions provided. Ordered: Office Visit No Charge Other complications of procedures, not elsewhere classified, initial encounter, Suture reaction I suspect the inflammation and redness is secondary to surgery however given his history of MRSA, we will continue Bactrim for one more week and have him follow-up in a week time for reevaluation, earlier if any new concerns. Ordered: Office Visit No Charge Orders: sulfamethoxazole-trimethoprim, 1 tabs, Oral, BID, X 7 days, # 14 tabs , 0 Refill(s), Pharmacy: [id number]
--- OUTSIDE RECORDS SUMMARY | 2016-11-27 08:21 | XMS REPORT | Referral Summary ---
Author Author [facility], Urology Organization [facility] Address Unknown Phone Unavailable Care Team Providers Care City Dispatcher Name Role Phone Emanuel Block Primary Care Physician [phone] Encounter VC Date(s): 12/12/14 - 12/12/14 [facility], Urology [address] [place] [address] [place] [address] Discharge Diagnosis: History of malignant neoplasm of [...] Daily, # 90 caps, 3 Refill(s), Pharmacy: [id number], 1 caps Oral Daily Start Date: 10/03/14 Status: Ordered Crestor 20 mg oral tablet 20 mg 1 tabs, Oral, Daily, fax to [place] pharmacy [phone], # 90 tabs, 2 Refill (s) Start [...] Follow Up With: Where: When: Marly Castañeda [address] [place] [address] Drive; [place] [address] Business (1) Within 3 to 5 days Comments: Follow Up With: Where: When: Damián Stein[address]; [place], [place] [id number] Business (1) In 6 months 06/14/2015 Comments: [...] counseling. Ordered: Office Visit Level 3 Est 04044 Prostate Specific Antigen Future Scheduled TestsReferral* Return to Clinic 10/03/14 11:16 AM Referrals to Other Providers Referred by: Zully Joy
--- OUTSIDE RECORDS SUMMARY | 2016-11-27 08:21 | XMS REPORT | Referral Summary ---
Author Author [facility], [facility] Medicine Organization [facility] Address Unknown Phone Unavailable Care Team Providers Care Military Technician Name Role Phone Emanuel Block Primary Care Physician [phone] Encounter VC Date(s): 11/23/15 - 11/23/15 [facility], [address] [place] [address] Discharge Diagnosis: Seborrheic keratosis, inflamed Discharge Diagnosis: Actinic keratosis of left mormon Discharge Disposition: 01-Home or Self Care Attending Physician: Emanuel Block DO Admitting Physician: Emanuel Block DO Vital Signs Most recent to 1 oldest [Reference Range]: Temperature Tympanic 36.9 degC [36.6-38.1 degC] (11/23/15 10:16 AM) Peripheral Pulse 68 bpm Rate [60-100 bpm] (11/23/15 10:16 AM) Respiratory Rate 17 br/min [14-20 br/min] (11/23/15 10:16 AM) Blood Pressure 130/64 mmHg [90-140/60-90 mmHg] (11/23/15 10:16 AM) SpO2 98 % (11/23/15 10:16 AM) Problem List Condition Effective Dates Status [...] Daily, # 90 caps, 3 Refill(s), Pharmacy: [id number], 1 caps Oral Daily Start Date: 11/23/15 Status: Ordered Crestor 40 mg oral tablet 40 mg 1 tabs, Oral, Daily, # 90 tabs, 0 Refill(s), other reason (Rx) Start Date: 11/23/15 Status: Ordered Fish Oil Oral, 0 Refill(s) Start Date: 06/29/14 Status: Ordered Multivitamins oral tablet 1 tabs, Oral, Daily Start Date: 03/20/14 Status: Ordered Plavix 75 mg oral tablet 1 tabs, Oral, Daily Start Date: 03/20/14 Status: Ordered predniSONE 10 mg oral tablet See Instructions, 5 tabs daily for 3 days, then 4daily for 3 days, then 3 daily for 3 days, then 2 daily for 3 days, then one tab daily for 3 days, # 45 tabs, 0 Refill(s), Pharmacy: [id number], 5 tabs daily for 3 days, then 4daily for 3 da... Start Date: 11/23/15 Stop Date: 12/08/15 Status: Ordered Viagra 100 mg oral tablet 1 tabs, Oral, Daily, as needed for erectile dysfunction, 1 hour before sexual activity Start Date: 03/20/14 Status: Ordered Results Hematology Most recent to 1 oldest [Reference Range]: WBC [4.8-10.8 8.3 10*3/uL 10*3/uL] (11/23/15 11:28 AM) RBC [4.60-6.20] 5.22 (11/23/15 11:28 AM) Hgb [14.0-18.0 15.5 gm/dL gm/dL] (11/23/15 11:28 AM) Hct [42.0-52.0 %] 46.4 % (11/23/15 11:28 AM) MCV [82.0-99.0 fL] 88.9 fL (11/23/15 11:28 AM) MCH [27.0-32.0 pg] 29.7 pg (11/23/15 11:28 AM) MCHC [32.0-36.0 33.4 gm/dL gm/dL] (11/23/15 11:28 AM) RDW [11.5-14.5 %] 13.7 % (11/23/15: AM) Platelet [150-400 222 10*3/uL 10*3/uL] (11/23/15: AM) MPV [8.8-14.8 fL] 10.7 fL (11/23/15 AM) Chemistry Most recent to 1 oldest [Reference Range]: Sodium Lvl [135-144 141 mEq/L mEq/L] (11/23/15 AM) Potassium Lvl 4.6 mEq/L [3.5-5.2 mEq/L] (11/23/15 AM) Chloride [99-111 106 mEq/L mEq/L] (11/23/15 AM) CO2 [23-31 mEq/L] 27 mEq/L (11/23/15 AM) AGAP [3-20] 8 (11/23/15 AM) BUN [8-26 mg/dL] 22 mg/dL (11/23/15 AM) Glucose Lvl [70-99 94 mg/dL mg/dL] (11/23/15 AM) Creatinine Lvl 0.86 mg/dL [0.72-1.25 mg/dL] (11/23/15 AM) eGFR [>60 mL/min] >60 mL/min 1 (11/23/15 AM) Calcium Lvl 9.5 mg/dL [8.9-10.5 mg/dL] (11/23/15 AM) Albumin Lvl [3.4-4.8 4.4 gm/dL gm/dL] (11/23/15 AM) Total Protein 6.8 gm/dL [6.2-8.1 gm/dL] (11/23/15 AM) Globulin [1.8-4.0 2.4 gm/dL gm/dL] (11/23/15 AM) ALT [0-55 U/L] 21 U/L (11/23/15: AM) AST [5-34 U/L] 19 U/L (4/29/16 11:28 AM) Alk Phos [40-150 58 U/L U/L] (11/23/15 11:28 AM) Bili Total [0.2-1.2 0.6 mg/dL mg/dL] (11/23/15 11:28 AM) Chol [0-199 mg/dL] 151 mg/dL (11/23/15 11:28 AM) Trig [0-149 mg/dL] 152 mg/dL *HI* (11/23/15 11:28 AM) HDL [40-84 mg/dL] 46 mg/dL (11/23/15 11:28 AM) LDL [0-130 mg/dL] 75 mg/dL (11/23/15 11:28 AM) VLDL Cholesterol 30 mg/dL [0-28 mg/dL] *HI* (11/23/15 11:28 AM) Cardiac Risk 3.3 [0.0-5.7] (11/23/15 11:28 AM) 1Result Comment: Multiply eGFR results by 1.21 for race. Immunizations No data available for this section Procedures Procedure Date Related Diagnosis Body Site Destruction (eg, laser surgery, 11/23/15 electrosurgery, cryosurgery, chemosurgery, surgical curettement), of benign lesions other than skin tags or cutaneous vascular proliferative lesions; up to 14 lesions Destruction (eg, laser surgery, 11/23/15 electrosurgery, cryosurgery, chemosurgery, surgical curettement), premalignant lesions (eg, actinic keratoses); first lesion PFT 09/12/11 Colonoscopy 06/24/10 Open repair AAA; AFB 08/29/09 Transrectal needle prostate bx 05/09/99 Colonoscopy 1999 Hernia1 1992 Tonsillectomy 1see conversion document Social History Social History Type Response Smoking Status Former smoker; Type: Cigarettes1 1Quit in 2011 Assessment and Plan Extracted from: Title: Office Visit Note Author: Emanuel Block DO Date: 11/23/15 Assessment/Plan Actinic keratosis of left mormon 1. The lesion on the left side of the face is consistent with an actinic keratosis. Therapy treatment recommended, patient was agreeable. Lesion was treated with 3 cycles of freezing. Ordered: Destruction premalignant lesion 1st 01580 Office Visit Level 3 Est 06059 HTN (hypertension) 1. Blood pressures well controlled at this time. 2. Continue with low-salt diet. 3. Continue with Cardizem as previous. 4. Labs to assess renal function ordered today. 5. Follow-up in 6 months for blood pressure management. Ordered: CBC Hemogram Comprehensive Metabolic Panel Lipid Panel Office Visit Level 3 Est 40916 Hyperlipemia, mixed 1. Labs ordered for lipid management. 2. Continue with Crestor at 80 mg daily. Ordered: Comprehensive Metabolic Panel Lipid Panel Office Visit Level 3 Est 12671 Seborrheic keratosis, inflamed 1. 2 inflamed seborrheic keratosis lesions on the scalp were destroyed today with cryotherapy. Ordered: Destruction, Of Flat Warts, Molluscum Contagiosum, Or Milia; Up To 14 Lesions 25340 Office Visit Level 3 Est 85695 Orders: diltiazem, 120 mg 1 caps, Oral, Daily, # 90 caps, 3 Refill(s), Pharmacy: [facility], 1 caps Oral Daily predniSONE, See Instructions, 5 tabs daily for 3 days, then 4daily for 3 days , then 3 daily for 3 days, then 2 daily for 3 days, then one tab daily for 3 days, # 45 tabs, 0 Refill(s), [facility], 5 tabs daily for 3 days, then 4daily for 3 da... rosuvastatin, 40 mg 1 tabs, Oral, Daily, # 90 tabs, 0 Refill(s), other reason (Rx)
--- OUTSIDE RECORDS SUMMARY | 2016-11-27 08:21 | XMS REPORT | Referral Summary ---
Author Author [facility], Family Medicine Organization [facility], [facility] Address Unknown Phone Unavailable Care Team Providers Care Fleet Salesperson Name Role Phone Emanuel Block Primary Care Physician [phone] Encounter VC Date(s): 04/25/15 - 04/25/15 [facility], [address] [place] [address]- Discharge Diagnosis: Encounter for postoperative care Discharge [...] Daily, # 90 caps, 3 Refill(s), Pharmacy: [facility], 1 caps Oral Daily Start Date: 10/03/14 Status: Ordered Crestor 20 mg oral tablet 20 mg 1 tabs, Oral, Daily, fax to [place] pharmacy [phone], # 90 tabs, 2 Refill (s) Start Date: 06/13/15 Status: Ordered Fish Oil Oral, 0 Refill(s) Start Date: 06/29/14 Status: Ordered Lipitor 40 mg oral tablet 40 mg 1 tabs, Oral, Daily, fax to [place] [phone], # 90 tabs, 1 Refill(s) Start Date: [...] tablet twice a day. 4. Continue with [place] as needed for pain. 5. Follow-up in 10 days for suture removal. Ordered: Office Visit No Charge
--- OUTSIDE RECORDS SUMMARY | 2016-11-27 08:21 | XMS REPORT | Referral Summary ---
Author Author [facility], Family Medicine Organization [facility] Address Unknown Phone Unavailable Care Team Providers Care District Captain Name Role Phone Emanuel Block Primary Care Physician [phone] Encounter VC Date(s): 04/23/15 - 04/23/15 [facility], [address] [place] [address] Discharge Diagnosis: Cellulitis of right [...] days, # 20 tabs, 0 Refill(s), Pharmacy: [id number] Start Date: 04/23/15 Stop Date: 05/03/15 Status: Ordered Cardizem CD 120 mg/24 hours oral capsule, extended release 1 caps, Oral, Daily, # 90 caps, 3 Refill(s), Pharmacy: [facility], 1 caps Oral Daily Start Date: 10/03/14 Status: Ordered Crestor 20 mg oral tablet 0.5 tabs, Oral, Daily Start Date: 03/20/14 Status: Ordered Fish Oil Oral, 0 Refill(s) Start Date: 06/29/14 Status: Ordered Multivitamins oral tablet 1 tabs, Oral, Daily Start Date: 03/20/14 Status: Ordered [place] 5 mg-325 mg oral tablet 1 tabs, [...] twice a day for 10 days. 6. [place] No. 5, 1-2 tablets every 6 hours as needed for pain. Ordered: Office Visit Level 3 Est 61222 Repair complex eyelid/nose/ear/lip 2.6-7.5 cm 35326 Cellulitis of right ear 1. Cellulitis of the ears is completely resolved. 2. 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 Ordered: Office Visit Level 3 Est 05132 Orders: HYDROcodone-acetaminophen, 1 tabs, Oral, q4hr, as needed for pain, # 30 tabs, 0 Refill(s) sulfamethoxazole-trimethoprim, 1 tabs, Oral, BID, X 10 days, # 20 tabs, 0 Refill(s), Pharmacy: [facility] Future Scheduled TestsReferral* Return to Clinic 10/03/14 11:16 AM Referrals to Other Providers Referred by: Zully Joy
--- OUTSIDE RECORDS SUMMARY | 2016-11-27 08:22 | XMS REPORT | Referral Summary ---
Author Author [facility], [facility] Organization [facility] Address Unknown Phone Unavailable Care Team Providers Care Emergency Medicine Name Role Phone Emanuel Block Primary Care Physician [phone] Encounter VC Date(s): 12/25/14 - 12/25/14 [facility], [address] [place] [address] Discharge Diagnosis: Actinic keratoses Discharge Diagnosis: ST (skin tag) Discharge Disposition: 01-Home or Self Care Attending Physician: Marly Castañeda MD Admitting Physician: Marly Castañeda MD Vital Signs Most recent to 1 oldest [Reference Range]: Temperature Tympanic 36.2 degC [36.6-38.1 degC] *LOW* (12/25/14 9:57 AM) Peripheral Pulse 80 bpm Rate [60-100 bpm] (12/25/14 9:57 AM) Respiratory Rate 16 br/min [14-20 br/min] (12/25/14 9:57 AM) Blood Pressure 128/84 mmHg [90-140/60-90 mmHg] (12/25/14 9:57 AM) Problem List Condition Effective Dates Status [...] Daily, # 90 caps, 3 Refill(s), Pharmacy: [facility], 1 caps Oral Daily Start Date: 10/03/14 Status: Ordered Crestor 20 mg oral tablet 20 mg 1 tabs, Oral, Daily, fax to [place] pharmacy [phone], # 90 tabs, 2 Refill (s) Start Date: 06/13/15 Status: Ordered Fish Oil Oral, 0 Refill(s) Start Date: 06/29/14 Status: Ordered Lipitor 40 mg oral tablet 40 mg 1 tabs, Oral, Daily, fax to [place] [phone], # 90 tabs, 1 Refill(s) Start Date: [...] Patient Education Author: Marly Castañeda MD Date: 12/25/14 Family Medicine Actinic Keratosis Actinic keratosis is a precancerous growth on the skin. This means it could develop into skin cancer if it is not treated. About 1% of actinic keratoses turn into skin cancer within a year. It is important to have all such growths removed to prevent them from developing into skin cancer. CAUSES Actinic keratosis is caused by getting too much ultraviolet (UV) radiation from the sun or other UV light sources. RISK FACTORS Factors that increase your chances of getting actinic keratosis include: Having light-colored skin and blue eyes. Having blonde or red hair. Spending a lot of time in the sun. Age. The risk of actinic keratosis increases with age. SYMPTOMS Actinic keratosis growths look like scaly, rough spots of skin. They can be as small as a pinhead or as big as a quarter. They may itch, hurt, or feel sensitive. Sometimes there is a little tag of pink or najera skin growing off them. In some cases, actinic keratoses are easier felt than seen. They do not go away with the use of moisturizing lotions or creams. Actinic keratoses appear most often on areas of skin that get a lot of sun exposure. These areas include the: Scalp. Face. Ears. Lips. Upper back. Backs of the hands. Forearms. DIAGNOSIS Your caregiver can usually tell what is wrong by performing a physical exam. A tissue sample (biopsy ) may also be taken and examined under a microscope. TREATMENT Actinic keratosis can be treated several ways. Most treatments can be done in your caregiver's office. Treatment options may include: Curettage. A tool is used to gently scrape off the growth. Cryosurgery. Liquid nitrogen is applied to the growth to freeze it. The growth eventually falls off the skin. Medicated creams, such as 5-fluorouracil or imiquimod. The medicine destroys the cells in the growth. Chemical peels. Chemicals are applied to the growth and the outer layers of skin are peeled off. Photodynamic therapy. A drug that makes your skin more sensitive to light is applied to the skin. A strong, blue light is aimed at the skin and destroys the growth. PREVENTION To prevent future sun damage: Try to avoid the sun between 10:00 a.m. and 4:00 p.m. when it is the strongest. Use a sunscreen or sunblock with SPF 30 or greater. Apply sunscreen at least 30 minutes before exposure to the sun. Always wear protective hats, clothing, and sunglasses with UV protection. Avoid medicines, herbs, and foods that increase your sensitivity to sunlight. Avoid tanning beds. HOME CARE INSTRUCTIONS If your skin was covered with a bandage, change and remove the bandage as directed by your caregiver. Keep the treated area dry as directed by your caregiver. Apply any creams as prescribed by your caregiver. Follow the directions carefully. Check your skin regularly for any changes. Visit a skin doctor (forestry and wildlife manager ) every year for a skin exam. SEEK MEDICAL CARE IF: Your skin does not heal and becomes irritated, red, or bleeds. You notice any changes or new growths on your skin. Document Released: 10/09/2009 Document Revised: 10/04/2012 Document Reviewed: Exit[employer] Patient Information 2014 [place]. No follow up information was provided. Extracted from: Title: Office Visit Note Author: Marly Castañeda MD Date: 12/25/14 Assessment/Plan Actinic keratoses If lesion on face persists, make appt with Dr. Filomena PALACIO (skin tag) Future Scheduled TestsReferral* Return to Clinic 10/03/14 11:16 AM Referrals to Other Providers Referred by: Zully Joy
--- OUTSIDE RECORDS SUMMARY | 2016-11-27 08:22 | XMS REPORT | Referral Summary ---
Author Author [facility], Family Medicine Organization [facility] Address Unknown Phone Unavailable Care Team Providers Care Pantry Goods Maker Name Role Phone Emanuel Block Primary Care Physician [phone] Encounter VC Date(s): 05/11/15 - 05/11/15 [facility], [address] [place] [address]- Discharge Diagnosis: Visit for wound care Discharge [...] Daily, # 90 caps, 0 Refill(s), Pharmacy: [facility], 1 caps Oral Daily Start Date: 11/13/15 Status: Ordered Crestor 20 mg oral tablet 20 mg 1 tabs, Oral, Daily, fax to [place] pharmacy [phone], # 90 tabs, 2 Refill (s) Start Date: 06/13/15 Status: Ordered Fish Oil Oral, 0 Refill(s) Start Date: 06/29/14 Status: Ordered Lipitor 40 mg oral tablet 40 mg 1 tabs, Oral, Daily, fax to [place] [phone], # 90 tabs, 1 Refill(s) Start Date: [...]
--- OUTSIDE RECORDS SUMMARY | 2016-11-27 08:22 | XMS REPORT | Continuity of Care Document ---
Author Author Esequiel Coyle MD Ambulatory Address [address] [place] [address] Phone Care Team Providers Care Specialty Food Products Supervisor Name Role Phone Marly Castañeda GUERITA Unavailable Payers Payer name Insurance type Covered alliance party ID Authorization(s) Unknown Problems Condition Effective Dates (start - stop) Clinical Status Erectile Dysfunction - *Chronic Hypertension, Unspecified - *Controlled Other and unspecified hyperlipidemia - *Chronic Peripheral vascular disease, unspecified - *Chronic Peripheral vascular disease with claudication - *Uncontrolled Dyslipidemia, goal LDL below 70 - *Controlled Hypertension - Uncontrolled Erectile dysfunction - *Uncontrolled PVD (peripheral vascular disease) with claudicatio - *Stable Hypertension - *Stable Dyslipidemia, goal LDL below 70 - *Stable Malignant Neoplasm, Prostate - *Controlled Erectile Dysfunction - *Chronic Allergic rhinitis - *Acute Dizziness - *Acute [...] Dosage Effective Dates (start - stop) Status Cardizem CD 120 mg capsule,extended release take 1 capsule (120MG) by oral route every day 120 MG - Active PreserVision AREDS 7,160 unit-113 [...] route every day 750 MG - Active Viagra 100 mg tablet take 1 tablet (100MG) by oral route every day as needed approximately 1 hour before sexual activity 100 MG - Active Immunizations Vaccine Date Status Comments Unknown Results Test Name Date and Time Measure Units Reference Range Abnormal Flag Comments Unknown Vital Signs Date / Time: Height Weight Pulse Rate Blood Pressure Temperature /12:52:00 67.00 in 150.00 lbs 72 /min 136/68 mm[Hg] /12:55:00 142/76 mm[Hg] Procedures Procedure Date Unknown Encounters Encounter Location Date Patient Visit [facility] Mur Card Patient Visit [facility] Patient Visit [facility] Patient Visit [facility] Mur Card Patient Visit [facility] Patient [facility] Patient Visit [facility] Patient Visit [facility] Patient Visit [facility] Patient Visit [facility] Mur Card Patient Visit [facility] Patient Visit [facility] Mur Card Patient Visit [facility] Patient Visit [facility] Patient Visit Conversion Advance Directives Directive Effective Date Unknown
--- OUTSIDE RECORDS SUMMARY | 2016-11-27 08:22 | XMS REPORT | Referral Summary ---
Author Author [facility], [facility] Organization [facility] Address Unknown Phone Unavailable Care Team Providers Care Pyrometer Mechanic Name Role Phone Emanuel Block Primary Care Physician [phone] Encounter Date(s): 05/24/15 - 05/24/15 [facility], [address] [place] [address] Discharge Diagnosis: Wellness examination Discharge Diagnosis: ED (erectile dysfunction) Discharge Diagnosis: Dyslipidemia, goal LDL below 70 Discharge Diagnosis: Seborrhea Discharge Diagnosis: HTN (hypertension) Discharge Disposition: 01-Home or Self Care Attending Physician: Emanuel Block DO Admitting Physician: Emanuel Block DO Vital Signs Most recent to 1 oldest [Reference Range]: Temperature Tympanic 35.7 degC [36.6-38.1 degC] *LOW* (05/24/15 10:42 AM) Peripheral Pulse 62 bpm Rate [60-100 bpm] (05/24/15 10:42 AM) Blood Pressure 136/82 mmHg [90-140/60-90 mmHg] (05/24/15 10:42 AM) Problem List Condition Effective Dates Status [...] Daily, # 90 caps, 3 Refill(s), Pharmacy: [facility], 1 caps Oral Daily Start Date: 11/23/15 Status: Ordered Crestor 40 mg oral tablet 40 mg 1 tabs, Oral, Daily, # 90 tabs, 2 Refill(s), Pharmacy: [facility], 1 tabs Oral Daily Start [...] days, # 45 tabs, 0 Refill(s), Pharmacy: [facility], 5 tabs daily for [...] 2011 Assessment and Plan Extracted from: Title: Well Male Visit Author: Emanuel Block DO Date: 05/24/15 Assessment/Plan Dyslipidemia, goal LDL below 70 1. His total cholesterol, triglycerides and VLDL are elevated. 2. Recommended increasing the Crestor to 20 mg from 10 mg daily. 3. Given his history of peripheral vascular disease, it's important for this patient to have more aggressive management of his lipids. 4. Recommendation was for diet modification avoiding fatty foods. 5. Recheck lipids in 6 months, we will adjust medication accordingly. Ordered: Periodic Comp Preventive Med 65+ years Est 88563 ED (erectile dysfunction) 1. Continue with the use of Viagra as needed. 2. If his symptoms worsen then we plan on sending him to urology. Ordered: Periodic Comp Preventive Med 65+ years Est 95943 HTN (hypertension) 1. Blood pressures well controlled at this time, the importance of good blood pressure control in light of his history of AAA and peripheral vascular disease was discussed in detail with the patient. Patient voiced understanding. 2. Continue with Cardizem as previous. 3. Recommended DASH diet. Ordered: Periodic Comp Preventive Med 65+ years Est 87594 Seborrhea 1. Recommended she use of Selsun Blue shampoo, apply to scalp and leave on for 15 minutes before rinsing off. Daily application recommended. 2. Follow-up in a month if no improvement. Wellness examination 1. This is a well-developed well-nourished 69-year-old gentleman in relatively good health. 2. Immunizations are up-to-date. 3. Healthy lifestyle changes recommended, patient voiced understanding. 4. Continue with tobacco cessation. 5. Repeat colonoscopy in 5 years per surgery recommendation.
--- OUTSIDE RECORDS SUMMARY | 2016-11-27 08:22 | XMS REPORT | Referral Summary ---
Author Author [facility], [facility] Organization [facility] Address Unknown Phone Unavailable Care Team Providers Care Flavoring Oil Filterer Name Role Phone Emanuel Block Primary Care Physician [phone] Encounter VC Date(s): 04/03/15 - 04/03/15 [facility], [address] [place] [address] Discharge Diagnosis: Lesion of right external ear Discharge Diagnosis: Lesion of right external ear Discharge Disposition: 01-Home or Self Care Attending Physician: Kaykay Jackson APRN Admitting Physician: Kaykay Jackson APRN Vital Signs Most recent to 1 oldest [Reference Range]: Temperature Tympanic 36.2 degC [36.6-38.1 degC] *LOW* (04/03/15 8:54 AM) Peripheral Pulse 78 bpm Rate [60-100 bpm] (04/03/15 8:54 AM) Blood Pressure 138/76 mmHg [90-140/60-90 mmHg] (04/03/15 8:54 AM) Problem List Condition Effective Dates Status [...] Daily, # 90 caps, 3 Refill(s), Pharmacy: [facility], 1 caps Oral Daily Start Date: 10/03/14 Status: Ordered Crestor 20 mg oral tablet 20 mg 1 tabs, Oral, Daily, fax to [place] pharmacy [phone], # 90 tabs, 2 Refill (s) Start Date: 06/13/15 Status: Ordered Fish Oil Oral, 0 Refill(s) Start Date: 06/29/14 Status: Ordered Lipitor 40 mg oral tablet 40 mg 1 tabs, Oral, Daily, fax to [place] [phone], # 90 tabs, 1 Refill(s) Start Date: [...] Procedures Procedure Date Related Diagnosis Body Site Biopsy external ear.. 04/03/15 Biopsy external ear.. 04/03/15 Biopsy of skin, subcutaneous tissue and/or 04/03/15 mucous membrane (including simple closure), unless otherwise listed; single lesion PFT 09/12/11 Colonoscopy 06/24/10 Open repair AAA; AFB 08/29/09 Transrectal needle prostate bx 05/09/99 Colonoscopy 1998 Hernia1 1992 Tonsillectomy 1see conversion document Social History Social History Type Response Smoking Status Former smoker; Type: Cigarettes1 1Quit in 2012 Assessment and Plan No data available for this section
--- OUTSIDE RECORDS SUMMARY | 2016-11-27 08:22 | XMS REPORT | Referral Summary ---
Author Author [facility], [facility] Organization [facility] Address Unknown Phone Unavailable Care Team Providers Care Dry Cans Operator Name Role Phone Emanuel Block Primary Care Physician [phone] Encounter Date(s): 05/24/15 - 05/24/15 [facility], [address] [place] [address] Discharge Diagnosis: Wellness examination Discharge Diagnosis: ED [...] Daily, # 90 caps, 3 Refill(s), Pharmacy: [facility], 1 caps Oral Daily Start Date: 10/03/14 [...] Periodic Comp Preventive Med 65+ years Est 12118 ED (erectile dysfunction) 1. Continue with the use of Viagra as needed. 2. If his symptoms worsen then we plan on sending him to urology. Ordered: Periodic Comp Preventive Med 65+ years Est 68832 HTN (hypertension) 1. Blood pressures well controlled at this time, the importance of good blood pressure control in light of his history of AAA and peripheral vascular disease was discussed in detail with the patient. Patient voiced understanding. 2. Continue with Cardizem as previous. 3. Recommended DASH diet. Ordered: Periodic Comp Preventive Med 65+ years Est 67292 Seborrhea 1. Recommended she use of Selsun [...] colonoscopy in 5 years per surgery recommendation. Future Scheduled TestsReferral* Return to Clinic 10/03/14 11:16 AM Referrals to Other Providers Referred by: Zully Joy
--- OUTSIDE RECORDS SUMMARY | 2016-11-27 08:22 | XMS REPORT | Referral Summary ---
Author Author [facility] Organization [facility] Address Unknown Phone Unavailable Care Team Providers Care Biodiesel Production Associate Name Role Phone Emanuel Block Primary Care Physician [phone] Encounter VC Date(s): 05/15/15 - 05/15/15 [facility], [address] [place] [address] Discharge Diagnosis: History of MRSA infection Discharge Diagnosis: Cellulitis of skin Discharge Disposition: 01-Home or Self Care Attending Physician: Emanuel Block DO Admitting Physician: Emanuel Block DO Vital Signs Most recent to 1 oldest [Reference Range]: Temperature Tympanic 36.0 degC [36.6-38.1 degC] *LOW* (05/15/15 2:52 PM) Peripheral Pulse 65 bpm Rate [60-100 bpm] (05/15/15 2:52 PM) Blood Pressure 135/65 mmHg [90-140/60-90 mmHg] (05/15/15 2:52 PM) Problem List Condition Effective Dates [...] days, # 20 tabs, 0 Refill(s), Pharmacy: [facility] Start Date: 05/15/15 Stop Date: 05/25/15 Status: Ordered Cardizem CD 120 mg/24 hours oral capsule, extended release 1 caps, Oral, Daily, # 90 caps, 3 Refill(s), Pharmacy: [facility], 1 caps Oral Daily Start [...] Extracted from: Title: Ambulatory Patient Education Author: Emanuel Block DO Date: 05/15/15 Family Medicine MRSA Infection MRSA stands for methicillin-resistant Staphylococcus aureus. This type of infection is caused by Staphylococcus aureus bacteria that are no longer affected by the medicines used to kill them (drug resistant). Staphylococcus ( staph) bacteria are normally found on the skin or in the nose of healthy people. In most cases, these bacteria do not cause infection. But if these resistant bacteria enter your body through a cut or sore, they can cause a serious infection on your skin or in other parts of your body. There is a slight chance that the staph on your skin or in your nose is MRSA. There are two types of MRSA infections: Hospital-acquired MRSA is bacteria that you get in the hospital. Community-acquired MRSA is bacteria that you get somewhere other than in a hospital. RISK FACTORS Hospital-acquired MRSA is more common. You could be at risk for this infection if you are in the hospital and you: Have surgery or a procedure. Have an IV access or a catheter tube placed in your body. Have weak resistance to germs (weakened immune system). Are elderly. Are on kidney dialysis. You could be at risk for community-acquired MRSA if you have a break in your skin and come into contact with MRSA. This may happen if you: Play sports where there is vszk-le-krnq contact. Live in a crowded setting, like a dormitory or a barracks. Share towels, razors, or sports equipment with other people. SYMPTOMS Symptoms of hospital-acquired MRSA depend on where MRSA has spread. Symptoms may include: Wound infection. Skin infection. Rash. Pneumonia. Fever and chills. Difficulty breathing. Chest pain. Community-acquired MRSA is most likely to start as a scratch or cut that becomes infected. Symptoms may include: A pus-filled pimple. A boil on your skin. Pus draining from your skin. A sore (abscess) under your skin or somewhere in your body. Fever with or without chills. DIAGNOSIS The diagnosis of MRSA is made by taking a sample from an infected area and sending it to a lab for testing. A laboratory director can grow (culture) MRSA and check it under a microscope. The cultured MRSA can be tested to see which type of antibiotic medicine will work to treat it. Newer tests can identify MRSA more quickly by testing bacteria samples for MRSA genes. Your health care provider can diagnose MRSA using samples from: Cuts or wounds in infected areas. Nasal swabs. Saliva or cough specimens from deep in the lungs (sputum). Urine. Blood. You may also have: Imaging studies (such as X-ray or MRI) to check if the infection has spread to the lungs, bones, or joints. A culture and sensitivity test of blood or fluids from inside the joints. TREATMENT Treatment depends on how severe, deep, or extensive the infection is. Very bad infections may require a hospital stay. Some skin infections, such as a small boil or sore (abscess), may be treated by draining pus from the site of the infection. More extensive surgery to drain pus may be necessary for deeper or more widespread soft tissue infections. You may then have to take antibiotic medicine given by mouth or through a vein. You may start antibiotic treatment right away or after testing can be done to see what antibiotic medicine should be used. HOME CARE INSTRUCTIONS Take your antibiotics as directed by your health care provider. Take the medicine as prescribed until it is finished. Avoid close contact with those around you as much as possible. Do not use towels, razors, toothbrushes, bedding, or other items that will be used by others. Wash your hands frequently for 15 seconds with soap and water. Dry your hands with a clean or disposable towel. When you are not able to wash your hands, use hand cracker sprayer that is more than 60 percent alcohol. Wash towels, sheets, or clothes in the washing machine with detergent and hot water. Dry them in a hot dryer. Follow your health care provider's instructions for wound care. Wash your hands before and after changing your bandages. Always shower after exercising. Keep all cuts and scrapes clean and covered with a bandage. Be sure to tell all your health care providers that you have MRSA so they are aware of your infection. SEEK MEDICAL CARE IF: You have a cut, scrape, pimple, or boil that becomes red, swollen, or painful or has pus in it. You have pus draining from your skin. You have an abscess under your skin or somewhere in your body. SEEK IMMEDIATE MEDICAL CARE IF: You have symptoms of a skin infection with a fever or chills. You have trouble breathing. You have chest pain. You have a skin wound and you become nauseous or start vomiting. MAKE SURE YOU: Understand these instructions. Will watch your condition. Will get help right away if you are not doing well or get worse. Document Released: 07/13/2006 Document Revised: 07/18/2014 Document Reviewed: [facility] Patient Information 2015 [facility]. This information is not intended to replace advice given to you by your health care provider. Make sure you discuss any questions you have with your health care provider. No follow up information was provided. Extracted from: Title: Office Visit Note Author: Emanuel Block DO Date: 05/15/15 Assessment/Plan Cellulitis of skin Pathophysiology of this presentation, and differential diagnosis, discussed in detail with the patient. All questions were answered. 1. Discontinue topical antibiotic application. 2. Bactrim double strength, one tablet twice a day for 10 days. 3. May use hydrocortisone cream and Vaseline combination, apply 3 times a day for dry skin and itchiness. 4. Follow-up if worsening presentation or no improvement. History of MRSA infection As above Orders: sulfamethoxazole-trimethoprim, 1 tabs, Oral, BID, X 10 days, # 20 tabs , 0 Refill(s), Pharmacy: [facility] Office Visit Level 4 Est 44811 Future Scheduled TestsReferral* Return to Clinic 10/03/14 11:16 AM Referrals to Other Providers Referred by: Zully Joy
--- OUTSIDE RECORDS SUMMARY | 2016-11-27 08:22 | XMS REPORT | Referral Summary ---
Author Author [facility] Organization [facility] Address Unknown Phone Unavailable Care Team Providers Care Hall Clerk Name Role Phone Emanuel Block Primary Care Physician [phone] Encounter VC Date(s): 05/15/15 - 05/15/15 [facility], [address] [place] [address] Discharge Diagnosis: History of MRSA [...] Daily, # 90 caps, 3 Refill(s), Pharmacy: [facility], 1 caps Oral Daily Start Date: 11/23/15 [...] days, # 45 tabs, 0 Refill(s), Pharmacy: [facility], 5 tabs daily for [...] if you: Play sports where there is [id number]-zg-[id number] contact. Live in a crowded setting, like a dormitory or a [employer] barracks. Share towels, razors, or sports equipment [...] it to a lab for testing. A starch factory laborer can grow (culture) MRSA and check it [...] able to wash your hands, use hand ambulatory service representative that is more than 60 percent alcohol. [...] Released: 07/13/2006 Document Revised: 07/18/2014 Document Reviewed: [employer] Patient Information 2015 [employer]. This information is not intended to replace [...] # 20 tabs , 0 Refill(s), Pharmacy: [facility] Office Visit Level 4 Est 65069
--- OUTSIDE RECORDS SUMMARY | 2016-11-27 08:22 | XMS REPORT | Continuity of Care Document ---
Author Author Via [facility] Organization [facility] Address Unknown Phone Unavailable Allergies Active Description Code Type Severity Reaction Onset Reported/Identified Relationship to Patient Clinical Status Yes No Known Medication Allergies NKMA N/A N/A 03/20/2014 Medications Problems Procedures Results Encounters ACCT No. Visit Date/Time Discharge Status Pt. Type Provider Facility Loc./Unit Complaint [id number] 09/07/2013 12:47:00 09/07/2013 23 :59:59 [facility] Outpatient [id number] 05/20/2013 14:38:00 05/20/2013 23 :59:59 [facility] Outpatient
--- OUTSIDE RECORDS SUMMARY | 2016-11-27 08:22 | XMS REPORT | Referral Summary ---
Author Author [facility] Organization [facility] Address Unknown Phone Unavailable Care Team Providers Care Medicare Contact Specialist Name Role Phone Emanuel Block Primary Care Physician [phone] Encounter VC Date(s): 12/04/14 - 12/04/14 [facility], [address] [place] [address] Discharge Diagnosis: AK (actinic keratosis) Discharge Disposition: 01-Home or Self Care Attending Physician: Marly Castañeda MD Admitting Physician: Marly Castañeda MD Vital Signs Most recent to 1 oldest [Reference Range]: Temperature Tympanic 36.3 degC [36.6-38.1 degC] *LOW* (12/04/14 9:08 AM) Peripheral Pulse 88 bpm Rate [60-100 bpm] (12/04/14 9:08 AM) Blood Pressure 158/78 mmHg [90-140/60-90 mmHg] *HI* (12/04/14 9:08 AM) Problem List Condition Effective Dates Status [...] Daily, # 90 caps, 3 Refill(s), Pharmacy: [facility], 1 caps Oral Daily Start Date: 10/03/14 Status: Ordered Crestor 20 mg oral tablet 20 mg 1 tabs, Oral, Daily, fax to [place] pharmacy [phone], # 90 tabs, 2 Refill (s) Start [...] Patient Education Author: Marly Castañeda MD Date: 12/04/14 Family Medicine Actinic Keratosis Actinic keratosis is [...] for any changes. Visit a skin doctor (roll picker ) every year for a skin exam. SEEK MEDICAL CARE IF: Your skin does not heal and becomes irritated, red, or bleeds. You notice any changes or new growths on your skin. Document Released: 10/09/2009 Document Revised: 10/04/2012 Document Reviewed: [facility] Patient Information 2014 [email or web address] [facility]. No follow up information was provided. Extracted from: Title: Office Visit Note Author: Marly Castañeda MD Date: 12/04/14 Assessment/Plan AK (actinic keratosis) frozen with liquid nitrogen Future Scheduled TestsReferral* Return to Clinic 10/03/14 11:16 AM Referrals to Other Providers Referred by: Zully Joy
--- OUTSIDE RECORDS SUMMARY | 2016-11-27 08:22 | XMS REPORT | Referral Summary ---
Author Author [facility], Family Medicine Organization [facility] Address Unknown Phone Unavailable Care Team Providers Care Geosciences Associate Professor Name Role Phone Emanuel Block Primary Care Physician [phone] Encounter VC Date(s): 02/18/16 - 02/18/16 [facility], [address] [place] [address] Discharge Diagnosis: Retained tick parts of neck Discharge Disposition: 01-Home or Self Care Attending Physician: Emanuel Block DO Admitting Physician: Emanuel Block DO Vital Signs Most recent to 1 oldest [Reference Range]: Temperature Tympanic 36.3 degC [36.6-38.1 degC] *LOW* (02/18/16 9:12 AM) Peripheral Pulse 64 bpm Rate [60-100 bpm] (02/18/16 9:12 AM) Blood Pressure 144/86 mmHg [90-140/60-90 mmHg] *HI* (02/18/16 9:12 AM) SpO2 97 % (02/18/16 9:12 AM) Problem List Condition Effective Dates Status [...] Daily, # 90 caps, 3 Refill(s), Pharmacy: [facility], 1 caps Oral Daily Start Date: 11/23/15 Status: Ordered cephalexin 500 mg oral tablet 500 mg 1 tabs, Oral, TID, X 10 days, # 30 tabs, 0 Refill(s), Pharmacy: [facility], 1 tabs Oral TID,x10 days Start Date: 02/14/16 Stop Date: 02/24/16 Status: Ordered Crestor 40 mg oral tablet 40 mg 1 tabs, Oral, Daily, # 90 tabs, 2 Refill(s), Pharmacy: [facility], 1 tabs Oral Daily [...] Visit Note Author: Emanuel Block DO Date: 02/18/16 Assessment/Plan 1.Retained tick parts of neck, Residual foreign body in soft tissue 1. Using a fine toothed pickup, the remainder of the tick was removed without difficulty. 2. Continue with antibiotic therapy as before. 3. Follow-up for any new concerns. Ordered: Office Visit Level 3 Est 52309
--- OUTSIDE RECORDS SUMMARY | 2016-11-27 08:22 | XMS REPORT | Referral Summary ---
Author Author [facility], Family Medicine Organization [facility] Address Unknown Phone Unavailable Care Team Providers Care Motorcycle Maker Name Role Phone Emanuel Block Primary Care Physician [phone] Encounter VC Date(s): 05/04/15 - 05/04/15 [facility] [address] [place] [address] Discharge Diagnosis: Visit for suture removal Discharge [...] oral tablet 1 tabs, Oral, BID, X 7 days, # 14 tabs, 0 Refill(s), Pharmacy: [facility] Start Date: 05/04/15 Stop Date: 05/11/15 Status: Ordered Cardizem CD 120 mg/24 hours oral capsule, extended release 1 caps, Oral, Daily, # 90 caps, 3 Refill(s), Pharmacy: [facility], 1 caps Oral Daily Start Date: 10/03/14 Status: Ordered Crestor 20 mg oral tablet 0.5 tabs, Oral, Daily Start Date: 03/20/14 Status: Ordered Fish Oil Oral, 0 Refill(s) Start Date: 06/29/14 Status: Ordered Multivitamins oral tablet 1 tabs, Oral, Daily Start Date: 03/20/14 Status: Ordered [place] 5 mg-325 mg oral tablet 1 tabs, [...] # 14 tabs , 0 Refill(s), Pharmacy: [facility] Future Scheduled TestsReferral* Return to Clinic 10/03/14 11:16 AM Referrals to Other Providers Referred by: Zully Joy
[2016-11-27 08:29] VITALS: Ht 170.2 cm; Wt 67.4 kg
[2016-11-27 08:30] VITALS: BP 134/78; PULSE 83; RESP 18; TEMP 97; O2SAT 95
--- NOTE | 2016-11-27 09:24 | ANESPREOP ---
Anesthesia Record Date and Time DATE: 11/27/16 TIME: 09:23 Proposed Surgical Procedure colonosocpy Allergies: Coded Allergies: No Known Drug Allergies (Verified Allergy, Unknown, 11/26/16) Ht/Wt/BMI Height: 5 ' 7.00 " Weight: 67.400 kg BMI: 23.3 kg/m2 Vital Signs Date Time Temp Pulse Resp B/P Pulse Ox O2 Delivery O2 Flow Rate FiO2 11/27/16 08:30 97.0 83 18 134/78 95 Room Air Medications Inpatient Medications Current Medications Medications (Trade) Dose Ordered Sig/Adam Start Time Stop Time Status Last Admin Dose Admin Lactated Ringer's (Lactated Ringers) 1,000 ml @ 30 mls/hr Q24H 11/27/16 07:00 11/27/16 08:53 30 MLS/HR Aspirin (Aspirin) 81 Mg Tablet, 81 MG PO DAILY, (Reported) Last Taken: on 11/13/16 Cephalexin (Cephalexin) 500 Mg Capsule, 1 TAB PO QID, (Reported) Last Taken: on 11/26/16 2100 Clopidogrel Bisulfate (Clopidogrel) 75 Mg Tablet , 1 TAB PO DAILY, (Reported) Last Taken: on 11/13/16 Diltiazem HCl (Diltiazem 24Hr ER) 120 Mg Cap.er.24h , 1 CAP PO DAILY, (Reported) Last Taken: on 11/26/16 2100 Multivitamins W-Minerals (Multivitamin) 1 Cap Capsule, 1 CAP PO DAILY, (Reported) Last Taken: on 11/13/16 [place]-3 Fatty Acids (Fish Oil) 500 Mg Capsule, 500 MG PO DAILY, (Reported) Last Taken: on 11/13/16 Rosuvastatin Calcium (Rosuvastatin Calcium) 40 Mg Tablet, 1 TAB PO DAILY, (Reported) Last Taken: on 11/13/16 Ubidecarenone (Coq-10) 30 Mg Capsule, 1 TAB PO DAILY, (Reported) Last Taken: on 11/13/16 Vit A/C/E AC/Znox/Cupric Oxide (Eye Vitamin- Minerals Tablet) 1 Each Tablet, 1 TAB PO DAILY, (Reported) Last Taken: on 11/13/16 Currently on Beta Bernard: No Medical/Surgical History Anesthesia PMH: Reports: *Hypertension (TREATED), Cancer (PROSTATE, SKIN-EAR), Clotting Problems (TAKES PLAVIX- off for 10 days), Denies: Anesthesia Reactions (NO AIRWAY ISSUES ), Glaucoma, Malignant Hyperthermia, Sleep Apnea Smoking Status: Never smoker Use Chewing Tobacco?: No Substance Use Type: does not use Alcohol Intake: none Past Surgical History Orthopedic Surgeries: Abdominal Surgeries: Yes - HERNIA REPAIR Genitourinary Surgeries: Cardiac Surgeries: Endocrine Surgeries: Reproductive Surgeries: Neurological Surgeries: Ear Surgeries: Nose Surgeries: Throat Surgeries: Other Surgeries: Yes - AORTIC ANUERYSM SURGERY- 2009; COLONOSCOPY 2010 Anesthesia Adverse Reactions: FOUND none Family Hx of Anesthesia Advers: none Hx of Motion Sickness: No Physical Exam Respiratory: Lungs clear Cardiovascular: FOUND Regular rate, rhythm Airway Assessment Mallampati Score: II TMD: 3 Fingerbreadths Neck Extension: Good Overall Assessment: No Airway Concerns ASA: 2 Plan Anesthesia Plan: TIVA Discussion Discussed risks/options/alternatives of anesthesia and questions answered. Patient consents. Nursing pain assessment noted. Present: Children (daughter) Attestation Statement Prior to the delivery of any anesthetic medication, I examined the patient, developed the plan, obtained the patient's consent and discussed the risk and benefits of the procedure with the patient/guardian. JASMIN MATOS CRNA November 27, 2016 09:24
[2016-11-27] MEDS ORDERED: PROPOFOL 500mg 50 ML IV ONE (10:24)
[2016-11-27] MEDS ORDERED: SULF1TAB42 PO (10:45)
[2016-11-27] MEDS ORDERED: PROPOFOL 200mg 20 ML IV ONE (11:20)
[2016-11-27 11:26] VITALS: BP 88/53; PULSE 84; RESP 16; TEMP 97.6; O2SAT 98
[2016-11-27 11:30] VITALS: BP 85/50; PULSE 78; RESP 17; O2SAT 99
[2016-11-27 11:40] VITALS: BP 107/57; PULSE 82; RESP 16; O2SAT 95
[2016-11-27 11:50] VITALS: BP 138/68; PULSE 77; RESP 18; O2SAT 95
[2016-11-27 12:05] VITALS: BP 129/70; PULSE 70; RESP 16; O2SAT 93
--- NOTE | 2016-11-27 19:48 | OPNOTEF ---
DATE OF SERVICE 11/27/2016 SURGEON Ace Brandon MD PREOPERATIVE DIAGNOSIS Family history of colon cancer, change in bowel habits with history towards diarrhea. POSTOPERATIVE DIAGNOSES Family history of colon cancer, change in bowel habits with history towards diarrhea, sigmoid diverticulosis. PROCEDURES Colonoscopy with random biopsies via cold biopsy technique. ANESTHESIA TIVA BRIEF HISTORY/INDICATIONS Mr. Kent is a 71-year-old gentleman who recently presented to my office as a result of his family history for colon cancer in his brother as well as recent onset of some loose stools and a component of some fecal urgency. As a result of the above indications it was recommended that he undergo a colonoscopy for further evaluation. For completeness please refer to notes included in the patient's chart. FINDINGS Upon colonoscopy the patient was found to have a moderate number of diverticula within the sigmoid colon region. There was no evidence for angiodysplastic lesions, polyps or spring malignancies. The mucosa was normal throughout with no suggestion for inflammatory bowel disease/colitis. Nonetheless, given his history for loose stools/diarrhea I elected to proceed with some random biopsies throughout the colon to rule in or rule out the process of microscopic/collagenous colitis. NARRATIVE OF PROCEDURE After informed consent was obtained the patient was brought to the endoscopy suite and placed on the table in left lateral decubitus position. Patient subsequently underwent total intravenous anesthesia by the nurse cigarette catcher at my request. Formal timeout was then completed. Next, a digital rectal exam was performed. Normal sphincter tone. No rectal masses were appreciated. An Olympus colonoscope was inserted into the anus and advanced through the lumen of the colon under direct visualization at all times until the cecum was ascertained. Triangulation of the tenia coli, ileocecal valve and appendiceal lumen were all visualized. The scope was slowly withdrawn, maintaining visualization of the lumen at all times. As stated above, the entire colon was without evidence for angiodysplastic lesions, polyps or spring malignancies. He was found to have numerous diverticula within the sigmoid colon region. As stated above, given his history for loose stools/diarrhea, I elected to proceed with random biopsies from the ascending colon, transverse colon, descending colon and rectum. These biopsies were all placed within a single container. This was done via cold biopsy technique. Once the colonoscope was drawn back to the rectal vault a J-maneuver was performed. No worrisome perianal pathology was noted. Scope was allowed to straighten and was withdrawn through the anal verge. Patient tolerated the procedure without difficulty and was sent back to the preop area in stable condition. Will await biopsy results from today's random biopsies and will proceed accordingly with further recommendations thereafter. MTDD
== END 2016-11-27 12:23 | disposition home or self-care (01) ==
LOC: SCU 08:15
PROVIDERS: ATTEND Surgery
DX: R19.4 Change in bowel habit (principal); K57.30 Diverticulosis of large intestine without perforation or abscess without bleeding; I10 Essential (primary) hypertension; E78.5 Hyperlipidemia, unspecified; Z79.02 Long term (current) use of antithrombotics/antiplatelets; Z79.82 Long term (current) use of aspirin; Z79.899 Other long term (current) drug therapy; Z87.891 Personal history of nicotine dependence; Z85.46 Personal history of malignant neoplasm of prostate; Z80.0 Family history of malignant neoplasm of digestive organs
CPT/HCPCS: 45380; 88305; J2704; J7120